=== PATIENT | female | born 1990 | race Caucasian/White ===

== ENCOUNTER 2016-12-08 03:41 | Emergency (ER) | payer OTHER ==
[~2016-12-08] VITALS: Ht 152.4 cm; Wt 43.6 kg
[~2016-12-08 03:41] MED LIST: AMLODIPINE-BEN1 EAC2 PO; ASPIRIN81 M2 PO; ATORVASTATIN CA10 MG PO; BACTRIM,SEPT1 TABLET PO; CLEOCIN300 MG PO; DEPO; DOXYCYCLINE HY100 MG PO; ENDOCET 5-3251 EACH PO; FERGON324 MG PO; Feosol PO; IBUPROFEN800 MG PO; METHADONE5 MG PO; MOTRIN800 MG PO; Motrin PO; NAPROSYN500 MG PO; NATALCARE RX1 TABLET PO; NOHOMEMEDS; NORCO 5/3251 TABLET PO; ONDANSETRON ODT4 MG PO; PERCOCET 5/31 TABLET PO; PRENATAL VITAM1 EAC3 PO; SPRINTEC1 EACH PO; ULTRAM50 MG PO; VIBRAMYCIN100 MG PO
[2016-12-08 03:58] LABS: HEMATOCRIT 39.3 % (36.0-46.0); MCH 29.8 PG (29.0-34.0); MCHC 33.3 G/DL (30.0-36.0); MCV 89.5 FL (83-99); MEAN PLAT.VOLUME 9.9 uM^3 (9.5-12.4); PLATELET COUNT 267 K/uL (156-360); RBC DIS.WIDTH-CV 12.9 % (11.8-14.6); RBC DIS.WIDTH-SD 42.6 % (39-53); RED BLOOD COUNT 4.39 M/uL (3.80-5.20); WHITE BLOOD COUNT 9.3 K/uL (4.1-10.2)
[2016-12-08 04:08] LABS: CHLORIDE 108 mEq/L (99-109); SODIUM 140 mEq/L (136-147)
[2016-12-08 04:11] LABS: GLUCOSE 111 mg/dL (70-99)
[2016-12-08 04:12] LABS: ANION GAP 9 MEQ/L (2-14)
[2016-12-08 04:13] LABS: TOTAL BILIRUBIN 0.2 mg/dL (0.0-1.0)
[2016-12-08 04:14] LABS: ALKALINE PHOSPHATASE 54 IU/L (3-129); GFR ESTIMATE (CALCULATED) > 59 mL/min/
[2016-12-08 04:15] LABS: UREA NITROGEN (BUN) 18 mg/dL (9-23)
[2016-12-08 04:23] LABS: QUANTITATIVE HCG < 4.0 MIU/ML
[2016-12-08 04:39] LABS: LIPASE 70 U/L (1.0-51.0)
[2016-12-08] MEDS ORDERED: CLONIDINE HCL0.1 MG PO (05:47)
[2016-12-08] MEDS ORDERED: ZOFRAN8 MG PO (05:47)
[2016-12-08] MEDS ORDERED: TRAZODONE HCL50 MG PO (05:47)
[2016-12-08 06:11] VITALS: BP 104/64
== END 2016-12-08 06:05 | disposition home or self-care (01) ==
LOC: EME 03:41
DX: R10.13 Epigastric pain (principal); F11.23 Opioid dependence with withdrawal; R11.2 Nausea with vomiting, unspecified; J45.909 Unspecified asthma, uncomplicated; F17.200 Nicotine dependence, unspecified, uncomplicated
CPT/HCPCS: 74177; 80053; 81003; 83690; 84702; 85027; 99281; 99285; J1885; J2405; J7030

== ENCOUNTER 2018-03-26 21:02 | Emergency (ER) | payer OTHER ==
[~2018-03-26] VITALS: Ht 154.9 cm; Wt 44.8 kg
[~2018-03-26 21:02] MED LIST changes: +CLONIDINE HCL0.1 MG PO; +TRAZODONE HCL50 MG PO; +ZOFRAN8 MG PO
[2018-03-26] MEDS ORDERED: BACTRIM,SEPT1 TABLET PO (22:08)
[2018-03-26 22:38] VITALS: BP 109/72
== END 2018-03-26 22:30 | disposition home or self-care (01) ==
LOC: EME 21:02
DX: L02.413 Cutaneous abscess of right upper limb (principal); Z88.0 Allergy status to penicillin
CPT/HCPCS: 99281; 99284